=== PATIENT | male | born 1950 | race Two or more races ===

== ENCOUNTER 2016-12-31 13:13 | Emergency (ER) | payer MEDICARE ==
[2016-12-31 13:53] LABS: EOS % 2.8 % (0-6); GRAN % 53.7 % (47-80); HEMATOCRIT 41.5 % (42.0-52.0); HEMOGLOBIN 14.3 gm/dl (14.0-18.0); LYMPH % 33.3 % (16-45); MEAN CELL VOLUME 88.9 fl (81-97); MEAN CORPUSCULAR HEMOGLOBIN 30.6 pg (27-33); MEAN CORPUSCULAR HGB CONC 34.5 g/dl (32-36); MEAN PLATELET VOLUME 9.4 fl (7.4-10.4); MONO % 9.2 % (0-9); PLATELET COUNT 302 K/uL (130-400); RED BLOOD COUNT 4.67 M/uL (4.40-5.70); RED CELL DISTRIBUTION WIDTH 13.6 % (11.5-14.5); WHITE BLOOD COUNT W/O DIFF 6.1 K/uL (4.2-12.2)
[2016-12-31 13:54] LABS: URINE APPEARANCE CLEAR; URINE BILIRUBIN NEGATIVE (NEGATIVE); URINE BLOOD NEGATIVE (NEGATIVE); URINE COLOR YELLOW; URINE GLUCOSE (UA) NEGATIVE (NEGATIVE); URINE KETONE NEGATIVE (NEGATIVE); URINE LEUKOCYTE ESTERASE NEGATIVE (NEGATIVE); URINE NITRITE NEGATIVE (NEGATIVE); URINE PROTEIN NEGATIVE (NEGATIVE)
[2016-12-31 14:05] LABS: ALB/GLOB RATIO 1.3 (1.1-1.8); ALBUMIN 4.4 gm/dL (3.5-5.0); ALKALINE PHOSPHATASE 65 U/L (38-126); ALT/SGPT 41 U/L (21-72); ANION GAP 10.4 (7-16); AST/SGOT 40 U/L (17-59); BILIRUBIN,TOTAL 1.15 mg/dL (0.2-1.3); BLOOD UREA NITROGEN 16 mg/dL (9-20); CARBON DIOXIDE 22.6 mmol/L (22-30); CREATININE 0.9 mg/dL (0.66-1.25); EST GLOMERULAR FILTRATION RATE > 60 ml/min; GLUCOSE,RANDOM 100 mg/dL (70-110); TOTAL PROTEIN 7.8 gm/dL (6.3-8.2)
--- NOTE | 2016-12-31 14:30 | Emergency Department Record ---
History of Present Illness - General Chief Complaint: Back Pain/Injury Stated Complaint: BACK PAIN Time Seen by Provider: 12/31/16 14:22 Source: Patient Mode of Arrival: Ambulatory Limitations: No limitations - History of Present Illness Initial Comments: pt c/o lower back pain that radiates down right leg. he does a lot of heavy lifting on a daily basis. hes had no bowel or bladder symptoms MD Complaint: Back pain, Back injury Onset/Timin -: Awoke with symptoms Similar Symptoms Previously: Yes Place: Home Radiation: Right leg Severity: Moderate Severity scale (1-10): 10 Quality: Sharp Consistency: Intermittent Improves With: None Worsens With: Walking Context: Unknown Associated Symptoms: Denies other symptoms Treatments Prior to Arrival: NSAIDS Treatment Prior to Arrival Comment:: Motrin 800 mg 4 hours ago - Related Data Previous Rx's Medication Instructions Recorded Cyclobenzaprine HCl [Flexeril] 10 mg PO TID #14 tablet 12/31/16 Hydrocodone/Acetaminophen [[place] 1 each PO QID #10 tablet 12/31/16 5-325 Tablet] Ibuprofen [Motrin] 800 mg PO Q8H PRN #14 tab 12/31/16 Allergies Allergy/AdvReac Type Severity Reaction Status Date / Time No Known Drug Allergies Allergy Verified 12/31/16 13:15 Travel Screening - Travel/Exposure Within Last 30 Days Have you traveled within the last 30 days?: No - Travel/Exposure Within Last Year Have you traveled outside the [place] in the last year?: No - Additonal Travel Details Have you been exposed to anyone with a communicable illness?: No - Travel Symptoms Symptom Screening: None Review of Systems Reviewed: No additional complaints except as noted below Constitutional: Reports: As per HPI. Denies: Chills, Fever, Malaise, Night sweats, Weakness, Weight change Eyes: Reports: As per HPI. Denies: Eye discharge, Eye pain, Photophobia, Vision change ENT: Reports: As per HPI. Denies: Congestion, Dental pain, Ear pain, Epistaxis , Hearing loss, Throat pain Respiratory: Reports: As per HPI. Denies: Cough, Dyspnea, Hemoptysis, Stridor, Wheezes Cardiovascular: Reports: As per HPI. Denies: Arrhythmia, Chest pain, Dyspnea on exertion, Edema, Murmurs, Orthopnea, Palpitations, Paroxysmal nocturnal dyspnea, Rheumatic Fever, Syncope Endocrine: Reports: As per HPI. Denies: Fatigue, Heat or cold intolerance, Polydipsia, Polyuria Gastrointestinal: Reports: As per HPI. Denies: Abdominal pain, Constipation, Diarrhea, Hematemesis, Hematochezia, Melena, Nausea, Vomiting Genitourinary: Reports: As per HPI. Denies: Dysuria, Frequency, Hematuria, Incontinence, Retention, Testicular pain, Testicular mass, Urgency Musculoskeletal: Reports: As per HPI. Denies: Arthralgia, Back pain, Gout, Joint swelling, Myalgia, Neck pain Skin: Reports: As per HPI. Denies: Bruising, Change in color, Change in hair/ nails, Lesions, Pruritus, Rash Neurological: Reports: As per HPI. Denies: Abnormal gait, Confusion, Headache, Numbness, Paresthesias, Seizure, Tingling, Tremors, Vertigo, Weakness Psychiatric: Reports: As per HPI. Denies: Anxiety, Auditory hallucinations, Depression, Homicidal thoughts, Suicidal thoughts, Visual hallucinations Hematological/Lymphatic: Reports: As per HPI. Denies: Anemia, Blood Clots, Easy bleeding, Easy bruising, Swollen glands Past Medical History - SOCIAL HISTORY Smoking Status: Never smoker Alcohol Use: None Drug Use: None - RESPIRATORY Hx Respiratory Disorders: No - CARDIOVASCULAR Hx Cardio Disorders: Yes Hx Hypertension: Yes - NEURO Hx Neuro Disorders: No - GI Hx GI Disorders: No - Hx Genitourinary Disorders: No - ENDOCRINE Hx Endocrine Disorders: No - MUSCULOSKELETAL Hx Musculoskeletal Disorders: No - PSYCH Hx Psych Problems: No - HEMATOLOGY/ONCOLOGY Hx Hematology/Oncology Disorders: No Family Medical History Any Significant Family History?: No Physical Exam - General General Appearance: Alert, Oriented x3, Cooperative, Mild distress - Head Head exam: Normal inspection - Eye Eye exam: Normal appearance, PERRL, EOMI Pupils: Normal accommodation - ENT ENT exam: Normal exam, Mucous membranes moist, Normal external ear exam, Normal orophraynx Ear exam: Normal external inspection. negative: External canal tenderness Nasal Exam: Normal inspection. negative: Discharge, Sinus tenderness Mouth exam: Normal external inspection, Tongue normal Teeth exam: Normal inspection. negative: Dental caries Throat exam: Normal inspection. negative: Tonsillar erythema, Tonsillar exudate - Neck Neck exam: Normal inspection, Full ROM. negative: Tenderness - Respiratory Respiratory exam: Normal lung sounds bilaterally. negative: Respiratory distress - Cardiovascular Cardiovascular Exam: Regular rate, Normal rhythm, Normal heart sounds - GI/Abdominal GI/Abdominal exam: Soft, Normal bowel sounds. negative: Tenderness - Rectal Rectal exam: Deferred - exam: Deferred - Extremities Extremities exam: Normal inspection, Full ROM, Normal capillary refill. negative: Tenderness - Back Back exam: Reports: Normal inspection, Muscle spasm, Paraspinal tenderness, Tenderness. Denies: Full ROM, Rash noted - Neurological Neurological exam: Alert, CN II-XII intact, Normal gait, Oriented X3 - Psychiatric Psychiatric exam: Normal affect, Normal mood - Skin Skin exam: Dry, Intact, Pallor, Warm Course Vital Signs 12/31/16 13:20 Temperature 98 F Pulse Rate 66 Respiratory 20 Rate Blood Pressure 130/98 Pulse Ox 98 Medical Decision Making - Management Options MDM Management: Additional Work-up Planned (e.g. ADM/Transfer/OP Study) - Data Complexity MDM Data: Labs Ordered and/or Reviewed, X-Ray Ordered and/or Reviewed - Lab Data Result diagrams: 12/31/16 13:45 12/31/16 13:45 Lab Results 12/31/16 12/31/16 12/31/16 Range/Units 13:45 13:45 13:45 WBC 6.1 (4.2-12.2) K/uL RBC 4.67 (4.40-5.70) M/uL Hgb 14.3 (14.0-18.0) gm/dl Hct 41.5 L (42.0-52.0) % MCV 88.9 (81-97) fl MCH 30.6 (27-33) pg MCHC 34.5 (32-36) g/dl RDW 13.6 (11.5-14.5) % Plt Count 302 (130-400) K/uL MPV 9.4 (7.4-10.4) fl Gran % 53.7 (47-80) % Lymphocytes % 33.3 (16-45) % Monocytes % 9.2 H (0-9) % Eosinophils % 2.8 (0-6) % Basophils % 1.0 (0-6) % Sodium 142 (136-145) mmol/L Potassium 4.3 (3.5-5.1) mmol/L Chloride 109 H (98-107) mmol/L Carbon Dioxide 22.6 (22-30) mmol/L Anion Gap 10.4 (7-16) BUN 16 (9-20) mg/dL Creatinine 0.9 (0.66-1.25) mg/dL Estimated GFR > 60 ml/min Random Glucose 100 (70-110) mg/dL Calcium 9.0 (8.5-10.1) mg/dL Total Bilirubin 1.15 (0.2-1.3) mg/dL AST 40 (17-59) U/L ALT 41 (21-72) U/L Alkaline Phosphatase 65 (38-126) U/L Total Protein 7.8 (6.3-8.2) gm/dL Albumin 4.4 (3.5-5.0) gm/dL Globulin 3.4 (1.4-4.8) gm/dL Albumin/Globulin Ratio 1.3 (1.1-1.8) Urine Color Yellow Urine Appearance Clear Urine pH 6.0 (5.0-8.0) Ur Specific [place] 1.025 (1.002-1.030) Urine Protein Negative (NEGATIVE) Urine Glucose (UA) Negative (NEGATIVE) Urine Ketones Negative (NEGATIVE) Urine Blood Negative (NEGATIVE) Urine Nitrite Negative (NEGATIVE) Urine Bilirubin Negative (NEGATIVE) Urine Urobilinogen 2.0 H (0.20 - 1.00) E.U./dL Ur Leukocyte Esterase Negative (NEGATIVE) - Radiology Data Radiology results: Report reviewed, Image reviewed Disposition Disposition: Discharge Clinical Impression: Sciatica Qualifiers: Laterality: right Qualified Code(s): M54.31 - Sciatica, right side Disposition: Home, Self-Care Condition: (1) Good Instructions: Sciatica (ED), Lumbar Radiculopathy (ED), Lower Back Exercises ( ED) Additional Instructions: follow up with family doctor. return sooner if worse. ice and moist heat to back. no lifting more then 5 lbs for 5 days. Prescriptions: Cyclobenzaprine HCl [Flexeril] 10 mg PO TID #14 tablet Hydrocodone/Acetaminophen [[place] 5-325 Tablet] 1 each PO QID #10 tablet Ibuprofen [Motrin] 800 mg PO Q8H PRN #14 tab PRN Reason: Pain - Moderate (5-7) Forms: Patient Portal Access
--- NOTE | 2017-01-01 07:58 | CT SCAN REPORT ---
EXAM: CT SCAN ABDOMEN/PELVIS WO CONTRAST HISTORY: RIGHT FLANK PAIN AND BACK PAIN FOR FOUR DAYS. TECHNIQUE: Axial CT scan of the abdomen and pelvis performed without oral or IV contrast. COMPARISON: None. FINDINGS: Coronary artery calcification is present. Heart size is normal. No pleural or pericardial effusion evident. There is a small hiatal hernia present. Numerous calcified gallstones with variable size are seen in the dependent portion of the gallbladder. No adjacent findings to suggest acute cholecystitis at this time. No intrarenal calculi identified in either kidney and no hydronephrosis evident. No hydroureter as well with no definite ureterocalculus seen on either side and no bladder calculus evident. There are numerous prostate calcifications present. Prostate is mildly enlarged measuring about 5.7 cm in transverse x 4.9 cm in AP diameter. Recommend correlation with physical exam and serum PSA. Evaluation of the bowel and viscera is very limited without oral or IV contrast. Given this limitation, no definite hepatic, splenic, adrenal, pancreatic, or renal mass identified. I believe the appendix is visualized and has a normal caliber structure with no appendicitis evident. There is a tiny nodule in the right lung base measuring only about 4 mm in size seen on image # 18 of 141. If the patient is at low risk for malignancy, follow-up in a years time would be suggested. Otherwise, follow-up in six months would be recommended. No free intraperitoneal air or free intraperitoneal fluid evident. Degenerative disc disease at the lumbosacral interspace in particular but also additional lumbar interspaces. Facet joint arthropathy in the lower lumbar spine as well. There does appear to be a component of central stenosis at the L4/5 level. IMPRESSION: 1. NO DEFINITE URINARY TRACT CALCULI OR HYDRONEPHROSIS EVIDENT. 2. MILD ENLARGEMENT OF THE PROSTATE CONTAINING SEVERAL CALCIFICATIONS. 3. CHOLELITHIASIS. NO ADDITIONAL FINDINGS TO SUGGEST ACUTE CHOLECYSTITIS CURRENTLY. 4. APPENDIX APPEARS NEGATIVE. 5. 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 JOB NUMBER: [id number] MTDD
== END 2016-12-31 15:34 | disposition home or self-care (01) ==
LOC: ER 13:13
DX: M54.41 Lumbago with sciatica, right side (principal); I10 Essential (primary) hypertension
CPT/HCPCS: 74176; 80053; 81003; 85025; 99283; 99284